=== PATIENT | male | born 1975 | race Caucasian/White ===

== ENCOUNTER 2018-02-27 12:09 | Emergency (ER) | payer MEDICAID ==
[~2018-02-27] VITALS: Ht 177.8 cm; Wt 61.0 kg
[2018-02-27] MEDS ORDERED: iohexol 300mg/ml 100ml inj. ONE (14:35)
[2018-02-27] MEDS ORDERED: ondansetron/PF 4mg/2ml inj IV ONE (15:05)
[2018-02-27] MEDS ORDERED: MORPHINE 2MG in 2ml NS syringe IV ONE (15:05)
[2018-02-27] MEDS ORDERED: TRAM50TA2 PO (15:58)
[2018-02-27 16:15] VITALS: BP 119/62
== END 2018-02-27 16:21 | disposition home or self-care (01) ==
LOC: ER 12:10
DX: S22.059A Unspecified fracture of T5-T6 vertebra, initial encounter for closed fracture (principal); S22.079A Unspecified fracture of T9-T10 vertebra, initial encounter for closed fracture; S20.219A Contusion of unspecified front wall of thorax, initial encounter; Z88.8 Allergy status to other drugs, medicaments and biological substances; Z79.899 Other long term (current) drug therapy; W23.0XXA Caught, crushed, jammed, or pinched between moving objects, initial encounter; Y93.89 Activity, other specified; Y92.89 Other specified places as the place of occurrence of the external cause; Y99.8 Other external cause status
CPT/HCPCS: 71046; 71260; 96374; 96375; 99284; J2274; J2405; J7030; Q9967